=== PATIENT | female | born 1975 | race Caucasian/White ===

== ENCOUNTER 2024-12-07 08:08 | Emergency (ER) | payer MEDICAID ==
[~2024-12-07] VITALS: Ht 154.9 cm; Wt 81.5 kg
[~2024-12-07 08:08] MED LIST: CARI350T PO; HYDR1TAB PO
[2024-12-07 08:13] VITALS: BP 146/83; PULSE 94; RESP 18; TEMP 97.6; O2SAT 98
== END 2024-12-07 08:36 | disposition left against medical advice (07) ==
LOC: ER 08:09
DX: M25.522 Pain in left elbow (principal); Z88.8 Allergy status to other drugs, medicaments and biological substances; Z53.21 Procedure and treatment not carried out due to patient leaving prior to being seen by health care provider